=== PATIENT | male | born 1985 | race African-American/Black ===

== ENCOUNTER 2016-12-22 08:31 | Emergency (ER) | payer BC, OTHER ==
[~2016-12-22] VITALS: Ht 177.8 cm; Wt 87.0 kg
[2016-12-22] MEDS: KETOROLAC 60MG/2ML VIAL IM ONE (10:06)
[2016-12-22] MEDS: DEXAMETHASONE 10 MG/ML VIAL IM ONE (10:06)
[2016-12-22 10:37] VITALS: BP 124/71
== END 2016-12-22 10:38 | disposition home or self-care (01) ==
LOC: ER 09:25
DX: J02.8 Acute pharyngitis due to other specified organisms (principal); F17.200 Nicotine dependence, unspecified, uncomplicated; F12.10 Cannabis abuse, uncomplicated
CPT/HCPCS: 96372; 99284; J1100; J1885